=== PATIENT | male | born 1970 | race Caucasian/White ===

== ENCOUNTER 2016-12-18 18:13 | Emergency (ER) | payer MEDICAID ==
[~2016-12-18] VITALS: Ht 182.9 cm; Wt 90.7 kg
[2016-12-18 18:13] VITALS: BP_SYST 150
[2016-12-18 18:39] VITALS: BP_SYST 150
== END 2016-12-18 18:39 ==
LOC: SED 18:13
DX: Z02.89 Encounter for other administrative examinations (principal); E11.9 Type 2 diabetes mellitus without complications
CPT/HCPCS: 99283

== ENCOUNTER 2017-02-25 11:48 | Emergency (ER) | payer MEDICAID ==
[~2017-02-25] VITALS: Ht 182.9 cm; Wt 99.8 kg
[2017-02-25 11:57] VITALS: BP_SYST 152
[2017-02-25 12:30] VITALS: BP_SYST 141
== END 2017-02-25 12:23 ==
LOC: SED 11:48
DX: Z02.89 Encounter for other administrative examinations (principal); E11.9 Type 2 diabetes mellitus without complications; Z86.79 Personal history of other diseases of the circulatory system
CPT/HCPCS: 93005; 99283

== ENCOUNTER 2023-04-22 12:18 | Emergency (ER) | payer MEDICAID ==
[~2023-04-22] VITALS: Ht 182.9 cm; Wt 95.3 kg
[2023-04-22 12:28] VITALS: BP_SYST 138; PULSE 80; RESP 19; TEMP 98; O2SAT 99
--- NOTE | 2023-04-22 12:31 | NUR ---
Patient triaged and placed in waiting room. VSS and patient appears in no acute distress at this time. Accompanied by SELF, awaiting available bed, and MD notified of need for MSE.
--- NOTE | 2023-04-22 12:34 | NUR ---
Pt brought by self,ambulatory,A&Ox4, pt presents to ER with L hand/swelling/pain/redness after drug use, pt currently taking antibiotics but symptoms not improving, afebrile,skin pink and warm , cap refill <3, respirations even and unlabored.
--- NOTE | 2023-04-22 13:40 | NUR ---
Dr Casas evaluating patient in the [facility]
[2023-04-22] MEDS ORDERED: SULF1TAB48 PO (13:41)
[2023-04-22] MEDS ORDERED: HYDR-3917 PO (13:41)
[2023-04-22] MEDS ORDERED: BUPR8TAB4 SL (13:44)
--- NOTE | 2023-04-22 13:58 | NUR ---
Patient given written and verbal discharge instructions and verbalizes understanding. ER MD discussed with patient the results and treatment provided. Patient in stable condition. ID arm band removed. Rx of Bactrim, [place], Buprenophrine given. Patient educated on pain management and to follow up with PMD. Pain Scale 3/10. Opportunity for questions provided and answered. Medication side effect fact sheet provided.
[2023-04-22 13:59] VITALS: BP_SYST 136; PULSE 80; RESP 19; TEMP 98; O2SAT 99
[2023-04-22] MEDS ORDERED: TAMS-11 PO (21:20)
[2023-04-22] MEDS ORDERED: ASPI-989 PO (21:20)
[2023-04-22] MEDS ORDERED: FURO-150 PO (21:20)
[2023-04-22] MEDS ORDERED: COR25 PO (21:20)
[2023-04-23] MEDS ORDERED: LIP40 PO (03:21)
[2023-04-23] MEDS ORDERED: LOSA50TA3 PO (03:21)
== END 2023-04-22 13:58 | disposition home or self-care (01) ==
LOC: SED 12:18
DX: L03.114 Cellulitis of left upper limb (principal); R22.32 Localized swelling, mass and lump, left upper limb; E11.9 Type 2 diabetes mellitus without complications; I10 Essential (primary) hypertension; Z79.899 Other long term (current) drug therapy
CPT/HCPCS: 99283

== ENCOUNTER 2023-04-22 17:20 | Inpatient (IN) | payer MEDICAID ==
[~2023-04-22] VITALS: Ht 182.9 cm; Wt 96.6 kg
[~2023-04-22 17:20] MED LIST: BUPR8TAB4 SL; HYDR-3917 PO; SULF1TAB48 PO
--- NOTE | 2023-04-22 17:22 | NUR ---
Patient to ER bed 03 to gown for evaluation. Side rails up.
[2023-04-22 17:25] VITALS: BP_SYST 148; PULSE 88; RESP 18; TEMP 98; O2SAT 96
--- NOTE | 2023-04-22 18:00 | NUR ---
DR GURROLA IN ROOM FOR I&D
--- NOTE | 2023-04-22 18:04 | NUR ---
Patient is a 52-year-old male with a history of CHF, hypertension, cardiomyopathy who presents to the ED for a wound check of left wrist cellulitis infection after injecting meth to that area 4 days ago. Patient was previously seen at [facility] 2 days ago, blood work up and ultrasound was obtained. He was diagnosed with cellulitis and given a prescription for doxycycline which she has been taking as prescribed. Patient was seen here earlier today and returns because he continues to have pain and swelling of the left hand. No fever or chills.
[2023-04-22 18:15] LABS: BASOPHILS % (AUTO) 0.3 % (0.0-2.0); EOSINOPHILS # (AUTO) 0.1 K/uL (0.0-0.4); EOSINOPHILS % (AUTO) 0.8 % (0.0-4.0); HEMATOCRIT 34.8 % (36-54); HEMOGLOBIN 11.6 g/dL (14.0-18.0); LYMPHOCYTES # (AUTO) 0.9 K/uL (1.0-5.5); LYMPHOCYTES % (AUTO) 6.2 % (20.5-51.5); MEAN CORPUSCULAR HEMOGLOBIN 29 pg (27-31); MEAN CORPUSCULAR HGB CONC 33 % (32-36); MEAN CORPUSCULAR VOLUME 87 fL (79.0-98.0); MONOCYTES % (AUTO) 6.9 % (1.7-9.3); NEUTROPHILS % (AUTO) 85.8 % (40.0-70.0); PLATELET COUNT (AUTO) 212 K/uL (130-430); RED CELL DISTRIBUTION WIDTH 14.5 % (9.0-15.0)
[2023-04-22] MEDS ORDERED: cefTRIAXone 1 GM IVPB PREMIX 50 ML IV ONE (18:15)
[2023-04-22] MEDS ORDERED: VANCOMYCIN HCL 1.25 GM/NS 250 ML IV ONE (18:15)
[2023-04-22 18:31] LABS: CALCIUM 7.8 mg/dL (8.4-11.0); CREATININE 0.53 mg/dL (0.55-1.30); TOTAL BILIRUBIN 0.4 mg/dL (0.0-1.0)
--- NOTE | 2023-04-22 18:43 | NUR ---
UNABLE TO START AN IV-MULTIPLE ATTEMPTS WITH DIFFRENT RNS. DR PITTS INFORMED
--- NOTE | 2023-04-22 19:46 | NUR ---
PATIENT STABLE VITALS SIGNS IN NORMAL LIMITS NOT COMPLAINING OF PAIN AT THIS TIME PATIENT ALL READY GOT VANCOMYCIN 1.5 GRM AND ROCEFIN 1 GRM
--- NOTE | 2023-04-22 21:05 | NUR ---
Admit bed requested Patient will be admitted to care of Dr.[facility]. Admitted to MEDSUR[facility] unit. Diagnosis LEFT ARM ABSCESS Inpatient (Yes or No) YES Observation (Yes or No) NO Orientation concerns or request close to nursing station (Yes or No) NO Covid Status NA On vent or bipap NO Isolation requirements NO Needs a sitter NO From Home (Yes or if No enter name of facility) HOMELESS Requires Dialysis (Yes or No) NO Med Rec Completed (Yes of No) NO
[2023-04-22] MEDS ORDERED: DOCUSATE SODIUM 100 MG CAPSULE PO PRN (21:15)
[2023-04-22] MEDS ORDERED: POTASSIUM CHLORIDE 20 MEQ TAB.PRT.SR PO PRN (21:15)
[2023-04-22] MEDS ORDERED: MAGNESIUM SULFATE 50 ML IV PRN (21:15)
[2023-04-22] MEDS ORDERED: ACETAMINOPHEN 325 MG TABLET PO PRN ×2 (21:15)
[2023-04-22] MEDS ORDERED: MUPIROCIN 2% TOPICAL OINTMENT 22 GM NS PRN (21:15)
[2023-04-22] MEDS ORDERED: ONDANSETRON HCL 4 MG/2 ML VIAL IVP PRN (21:15)
[2023-04-22] MEDS ORDERED: ZOLPIDEM TARTRATE 5 MG TABLET PO PRN (21:15)
[2023-04-22] MEDS ORDERED: INSULIN LISPRO SLIDING SCALE 100 UNITS/ML, 3 ML VIAL (humaLOG) SUBCUT PRN (21:15)
[2023-04-22] MEDS ORDERED: LORazepam 2 MG/ML VIAL IVP PRN (21:15)
[2023-04-22] MEDS ORDERED: MORPHINE 2 MG/ML INJ. SYRINGE IVP PRN ×2 (21:15)
[2023-04-22] MEDS ORDERED: TAMS-11 PO (21:20)
[2023-04-22] MEDS ORDERED: ASPI-989 PO (21:20)
[2023-04-22] MEDS ORDERED: COR25 PO (21:20)
[2023-04-22] MEDS ORDERED: FURO-150 PO (21:20)
--- NOTE | 2023-04-22 21:20 | NUR ---
Admit bed requested Patient will be admitted to care of Dr.[facility]H [facility]. Admitted to MEDSURG unit. Diagnosis LEFT ARM ABSCESS Inpatient (Yes or No) YES Observation (Yes or No) NO Orientation concerns or request close to nursing station (Yes or No) NO Covid Status NA On vent or bipap Isolation requirements NO Needs a sitter NO From Home (Yes or if No enter name of facility) HOMELESS Requires Dialysis (Yes or No) NO Med Rec Completed (Yes of No) YES
--- NOTE | 2023-04-22 21:24 | NUR ---
Admit bed requested Patient will be admitted to care of Dr.[facility]. Admitted to MEDSURG unit. Diagnosis LEFT ARM ABSCESS Inpatient (Yes or No) YES Observation (Yes or No) NO Orientation concerns or request close to nursing station (Yes or No) NO Covid Status NA On vent or bipap NO Isolation requirements NO Needs a sitter NO From Home (Yes or if No enter name of facility) HOMELESS Requires Dialysis (Yes or No) NO Med Rec Completed (Yes of No) YES
[2023-04-22] MEDS: NACL 0.9% 1,000 ML IV SCH (21:31)
[2023-04-22 22:00] VITALS: BP_SYST 153; PULSE 86; RESP 18; TEMP 97.5; O2SAT 97
--- NOTE | 2023-04-22 22:27 | NUR ---
Patient will be admitted to care of BONNY CHICAS. Admitted to unit. Will go to room . Belongings list completed. Complete and up to date summary report printed. SBAR report to be given at bedside with opportunity for questions.
[2023-04-22] MEDS ORDERED: VANCOMYCIN HCL 750 MG/NS 250 ML IV ONE (22:30)
--- NOTE | 2023-04-22 22:30 | NUR ---
ADMISSION NOTE Received patient from ER via gurney. Patient admitted with diagnosis of LEFT HAND ABSCESS. Patient is awake, alert, oriented X 4. Patient oriented to hospital room, call light, toileting, pain management and safety-teach back done. Patient informed that their room number is 117B. Personal belongings checked and Belongings List documented. Call light within reach.
[2023-04-22] MEDS ORDERED: NALOXONE HCL 0.4 MG/ML AMP (NARCAN) IVP PRN (22:45)
[2023-04-22] MEDS ORDERED: HYDROcodone/ACETAMIN 5-325 MG TAB (NORCO/ VICODIN) PO PRN (22:45)
[2023-04-22 23:04] VITALS: BP_SYST 153; PULSE 86; RESP 18; TEMP 97.8
--- NOTE | 2023-04-22 23:50 | NUR ---
BELONGINGS Pt is refusing to let nurses go through his backpack to document belongings, says "you don't have my permission". Informed pt that it is policy for us to document his belongings for every patient. Still refusing. Charge nurse and greenhouse superintendent made aware.
--- NOTE | 2023-04-23 00:12 | NUR ---
BELONGINGS machine shop supervisor and security went to pt room to inform pt that it is policy for us to document belongings. Pt still refused but let security scan his backpack, in which it alarmed. Pt still refusing for us to look through his backpack
[2023-04-23] MEDS ORDERED: VANCOMYCIN HCL 1000 MG/VIAL IV ONE (01:22)
--- NOTE | 2023-04-23 01:30 | NUR ---
Patient insisting on being allowed to smoke and was also demanding for pain killers. Patient became aggressive while trying to explain policy about belongings and smoking. Patient suddenly started recording conversation using his phone and also started video recording me while I was talking to him. I took away the phone while explaining explaining that recording is illegal without the consent of the person being recorded. The phone was handed over to security who was at the bedside with me at the time who then placed it on the patient's own bedside table. Patient agreed to stay and be treated and volunteered to delete the video recordings that were taken illegally. Present during the entire incident were 2 of our security officers, the [facility] charge nurse, the bedside RN and her preceptee.
[2023-04-23 02:01] VITALS: O2SAT 97
[2023-04-23] MEDS ORDERED: LOSA50TA3 PO (03:21)
[2023-04-23] MEDS ORDERED: LIP40 PO (03:21)
[2023-04-23 03:40] LABS: BARBITURATE, URINE NEGATIVE (NEG <=200); BENZODIAZEPINE, URINE NEGATIVE (NEG <=150); CANNABINOID, URINE NEGATIVE (NEG <=50); COCAINE, URINE NEGATIVE (NEG <=150); METHAMPHETAMINES SCREEN,URINE POSITIVE (NEG <=500); OPIATE, URINE NEGATIVE (NEG <=100); PHENCYCLIDINE SCREEN,URINE NEGATIVE (NEG <=25); URINE AMPHETAMINE POSITIVE (NEG <=500); URINE METHADONE NEGATIVE (NEG <=200); URINE OXYCODONE SCREEN NEGATIVE (NEG <=100); URINE PROPOXYPHENE SCREEN NEGATIVE (NEG <=300)
[2023-04-23 03:41] LABS: UR TRICYCLIC ANTIDEPRESSANTS NEGATIVE (NEG <=300)
[2023-04-23 04:23] LABS: BASOPHILS # (AUTO) 0.1 K/uL (0.0-0.2); BASOPHILS % (AUTO) 0.6 % (0.0-2.0); EOSINOPHILS # (AUTO) 0.2 K/uL (0.0-0.4); EOSINOPHILS % (AUTO) 1.5 % (0.0-4.0); HEMATOCRIT 34.9 % (36-54); HEMOGLOBIN 11.5 g/dL (14.0-18.0); LYMPHOCYTES # (AUTO) 1.3 K/uL (1.0-5.5); LYMPHOCYTES % (AUTO) 10.3 % (20.5-51.5); MEAN CORPUSCULAR HEMOGLOBIN 29 pg (27-31); MEAN CORPUSCULAR HGB CONC 33 % (32-36); MEAN CORPUSCULAR VOLUME 87 fL (79.0-98.0); MONOCYTES # (AUTO) 0.9 K/uL (0.0-1.0); MONOCYTES % (AUTO) 7.5 % (1.7-9.3); NEUTROPHILS % (AUTO) 80.1 % (40.0-70.0); PLATELET COUNT (AUTO) 223 K/uL (130-430); RED BLOOD CELL COUNT(AUTO) 4.01 MIL/uL (4.2-6.2); RED CELL DISTRIBUTION WIDTH 14.5 % (9.0-15.0); WHITE BLOOD COUNT (AUTO) 12.4 K/uL (4.8-10.8)
[2023-04-23 04:37] LABS: CALCIUM 7.8 mg/dL (8.4-11.0); CREATININE 0.5 mg/dL (0.55-1.30)
[2023-04-23] MEDS: NACL 0.9% 1,000 ML IV SCH (06:34)
--- NOTE | 2023-04-23 06:42 | NUR ---
CLOSING NOTE Pt lying in bed, eyes closed. No s/s of respiratory distress. Breathing even and unlabored on RA. IV site intact and patent with fluids running at ordered rate. Fall and safety precautions in place with bed in lowest position, call light within reach
[2023-04-23 08:30] VITALS: O2SAT 97
[2023-04-23] MEDS ORDERED: VANCOMYCIN HCL 1,250 MG in NS 250 ML IV SCH ×2 (10:00→13:00)
--- NOTE | 2023-04-23 11:00 | NUR ---
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 The patient is homeless. He couch surfs among friends and is a drug abuser. per patient, he "has a drug problem, but is not a drug abuser." The patient has participated in AA before, but states he didn't like it because he can't relate to addicts. The patient typically stays in the [place]/ [place] area. He has food stamps and general relief in place He states he doesn't have underlying mental health issues. He has minimal familial support, because his family "doesn't understand my living circumstances. I offered the patient resources related to housing, additional government assistance, and substance abuse programs. he was receptive of the information provided. I offered to arrange a substance abuse counseling appointment at the [facility] office, however he declined at the moment stating he had "some personal things and bills to handle". The patient was provided a pair of weather appropriate clothing, a sack meal, and an uber transport when ready. At time of discharge, the patient indicated he was going to his friends at the [facility] in [place]. A homeless assessment will be completed on behalf of the patient.
[2023-04-23 12:15] VITALS: BP_SYST 165; PULSE 90; RESP 18; TEMP 97.7; O2SAT 99
[2023-04-23] MEDS ORDERED: LOSARTAN/HYDROCHLOROTHIAZIDE TAB (HYZAAR 50-12.5 MG) PO ONE (14:15)
[2023-04-23] MEDS ORDERED: HYDROCHLOROTHIAZIDE 12.5 MG CAPSULE (HCTZ) PO ONE (14:15)
[2023-04-23] MEDS ORDERED: LOSARTAN POTASSIUM 50 MG TABLET (COZAAR) PO ONE (14:15)
[2023-04-23 15:02] VITALS: BP_SYST 165; PULSE 86; RESP 18; TEMP 98.4; O2SAT 97
--- NOTE | 2023-04-23 15:58 | NUR ---
Discharge instructions given to patient. IV removed. SW arranged for Uber transportation. Dressing to left hand chaned per patient's request. See discharge summary. patient left in no apparent distress.
[2023-04-23 16:12] VITALS: BP_SYST 149; PULSE 92; RESP 16; TEMP 98.1; O2SAT 97
== END 2023-04-23 16:00 | disposition home or self-care (01) | DRG 383 ==
LOC: SED 17:20 → SMU 21:01
PROVIDERS: ADMIT General Practice; ATTEND General Practice
PROC: 0H9GXZZ Drainage of Left Hand Skin, External Approach (ICD-10-PCS; principal; 2023-04-22)
DX: L03.114 Cellulitis of left upper limb (principal); I42.7 Cardiomyopathy due to drug and external agent; I50.9 Heart failure, unspecified; E83.51 Hypocalcemia; I11.0 Hypertensive heart disease with heart failure; L02.414 Cutaneous abscess of left upper limb; E87.6 Hypokalemia; F15.10 Other stimulant abuse, uncomplicated; T50.905A Adverse effect of unspecified drugs, medicaments and biological substances, initial encounter; Z91.199 Patient's noncompliance with other medical treatment and regimen due to unspecified reason; Y92.89 Other specified places as the place of occurrence of the external cause
CPT/HCPCS: 36415; 80048; 80053; 80307; 82962; 83037; 83605; 83735; 85025; 87040; 93971; 96365; 96368; 99285; J0696; J2270; J3370; J7030; J7050

== ENCOUNTER 2024-04-12 10:12 | Emergency (ER) | payer MEDICAID ==
[~2024-04-12] VITALS: Ht 172.7 cm; Wt 86.2 kg
[~2024-04-12 10:12] MED LIST changes: +ASPI-989 PO; +COR25 PO; +FURO-150 PO; +LIP40 PO; +LOSA-413 PO; +TAMS-11 PO
[2024-04-12] MEDS ORDERED: NALOXONE HCL 2 MG/2 ML SYR ONE (10:17)
[2024-04-12] MEDS: NALOXONE HCL 2 MG/2 ML SYR IVP ONE (10:24)
[2024-04-12 10:25] VITALS: BP_SYST 156; PULSE 102; RESP 13; TEMP 98.5; O2SAT 95
[2024-04-12 10:30] LABS: BASOPHILS % (AUTO) 0.6 % (0.0-2.0); EOSINOPHILS # (AUTO) 0.1 K/uL (0.0-0.4); EOSINOPHILS % (AUTO) 1.7 % (0.0-4.0); HEMATOCRIT 44.6 % (36-54); HEMOGLOBIN 14.6 g/dL (14.0-18.0); LYMPHOCYTES # (AUTO) 1.4 K/uL (1.0-5.5); LYMPHOCYTES % (AUTO) 17.6 % (20.5-51.5); MEAN CORPUSCULAR HEMOGLOBIN 28 pg (27-31); MEAN CORPUSCULAR HGB CONC 33 % (32-36); MEAN CORPUSCULAR VOLUME 85 fL (79.0-98.0); MONOCYTES # (AUTO) 0.6 K/uL (0.0-1.0); MONOCYTES % (AUTO) 8.1 % (1.7-9.3); NEUTROPHILS # (AUTO) 5.8 K/uL (1.8-7.7); PLATELET COUNT (AUTO) 228 K/uL (130-430); RED BLOOD CELL COUNT(AUTO) 5.25 MIL/uL (4.2-6.2); RED CELL DISTRIBUTION WIDTH 17.9 % (9.0-15.0)
[2024-04-12] MEDS ORDERED: NACL 0.9% 2,000 ML IV ONE (10:45)
[2024-04-12 10:53] LABS: SALICYLATE 3 mg/dL (3-30)
[2024-04-12 10:56] LABS: ACETAMINOPHEN < 1 ug/mL (1-30); ALCOHOL, BLOOD < 3 mg/dL (<10)
[2024-04-12] MEDS: NACL 0.9% 1,000 ML IV ONE (10:56)
[2024-04-12 10:59] LABS: PROTHROMBIN TIME 10.8 SECS (9.5-12.5)
[2024-04-12 11:00] LABS: BILIRUBIN,URINE 1+ (NEGATIVE); BLOOD, URINE NEGATIVE (NEGATIVE); CLARITY/URINE CLEAR (CLEAR); COLOR,URINE YELLOW (YELLOW); GLUCOSE,URINE TRACE (NEGATIVE); KETONES,URINE TRACE (NEGATIVE); LEUKOCYTE ESTERASE ,URINE NEGATIVE (NEGATIVE); NITRITE, URINE NEGATIVE (NEGATIVE); PROTEIN URINE 3+ (NEGATIVE)
[2024-04-12 11:14] LABS: ALANINE AMINOTRANSFERASE 15 U/L (12-78); ALBUMIN 3.7 g/dL (3.4-4.8); ANION GAP 10 (5-15); ASPARTATE AMINOTRANSFERASE 18 U/L (10-37); CALCIUM 8.6 mg/dL (8.4-11.0); CARBON DIOXIDE 28 mmol/L (23-29); CHLORIDE 108 mmol/L (98-107); CREATININE 1.23 mg/dL (0.55-1.30); GFR AFRICAN AMERICAN 79 mL/min (>90); GLUCOSE 120 mg/dL (74-106); POTASSIUM 3.5 mmol/L (3.5-5.1); SODIUM SERUM 146 mmol/L (136-145); TOTAL BILIRUBIN 0.7 mg/dL (0.0-1.0); TOTAL PROTEIN, SERUM 7.2 g/dL (6.4-8.3); UREA NITROGEN, BLOOD 14 mg/dL (8-21)
[2024-04-12 11:16] LABS: GFR NON AFRICAN-AMERICAN 66 mL/min (>90)
[2024-04-12 11:17] LABS: BILIRUBIN,DIRECT 0.2 mg/dL (0.0-0.3)
[2024-04-12 11:25] LABS: BARBITURATE, URINE NEGATIVE (NEG <=200); BENZODIAZEPINE, URINE NEGATIVE (NEG <=150); CANNABINOID, URINE NEGATIVE (NEG <=50); COCAINE, URINE NEGATIVE (NEG <=150); METHAMPHETAMINES SCREEN,URINE POSITIVE (NEG <=500); OPIATE, URINE NEGATIVE (NEG <=100); PHENCYCLIDINE SCREEN,URINE POSITIVE (NEG <=25); URINE AMPHETAMINE POSITIVE (NEG <=500); URINE METHADONE NEGATIVE (NEG <=200)
[2024-04-12 11:26] LABS: UR TRICYCLIC ANTIDEPRESSANTS NEGATIVE (NEG <=300); URINE OXYCODONE SCREEN NEGATIVE (NEG <=100)
[2024-04-12 11:38] LABS: BACTERIA,URINE RARE /HPF (None Seen); FINE GRANULAR CASTS,URINE 0-3 /LPF (None Seen); RBC,URINE 0-3 /HPF (0-3); WBC,URINE 0-3 /HPF (0-3)
[2024-04-12 14:07] VITALS: BP_SYST 156; PULSE 101; RESP 14; TEMP 98.3; O2SAT 97
== END 2024-04-12 14:11 | disposition home or self-care (01) ==
LOC: SED 10:12
DX: T67.5XXA Heat exhaustion, unspecified, initial encounter (principal); F15.10 Other stimulant abuse, uncomplicated; R41.82 Altered mental status, unspecified; F16.10 Hallucinogen abuse, uncomplicated; E86.0 Dehydration; R07.89 Other chest pain; E11.9 Type 2 diabetes mellitus without complications; I10 Essential (primary) hypertension; Z79.899 Other long term (current) drug therapy; Z79.2 Long term (current) use of antibiotics; X58.XXXA Exposure to other specified factors, initial encounter; Y93.89 Activity, other specified; Y92.89 Other specified places as the place of occurrence of the external cause; Y99.8 Other external cause status
CPT/HCPCS: 99291; 96374; 70450; 71045; 96361; 80307; 80076; 80048; 82140; 85025; 85610; 85730; 87040; 84484; 36415; 93005; 99292; 82948; 83605; 81001; G0482; J2310; J7030; G0480; G0481; 81000; 81015